=== PATIENT | female | born 1950 | race Caucasian/White ===

== ENCOUNTER 2020-01-17 17:31 | Emergency (ER) | payer MEDICARE, SELFPAY ==
--- NOTE | 2020-01-17 17:34 | ED.FEMALEGU ---
HPI - Female Genitourinary General Chief complaint: Urogenital-Female Stated complaint: Possible UTI Time Seen by Provider: 01/17/20 17:55 Source: patient and RN notes reviewed Mode of arrival: ambulatory Limitations: no limitations History of Present Illness HPI Narrative: 69-year-old female presents with concern for urinary tract infection. She reports symptoms started this morning with burning and frequency. She denies flank pain, abdominal pain, nausea, vomiting, fever, general malaise, abnormal vaginal discharge or bleeding. Reports her last UTI was about 6 months ago. MD elicited complaint: UTI Related Data Home Medications Medication Instructions Recorded Confirmed bupropion HCl 300 mg PO DAILY 01/17/20 01/17/20 carbidopa-levodopa 2 tablet QID 01/17/20 01/17/20 escitalopram oxalate 10 mg DAILY 01/17/20 01/17/20 esomeprazole magnesium 40 mg DAILY 01/17/20 01/17/20 icosapent ethyl [Vascepa] 2 g PO QID 01/17/20 01/17/20 mesalamine 1.2 g PO DAILY 01/17/20 01/17/20 thyroid (pork) [Aguilar Thyroid] 60 mg DAILY 01/17/20 01/17/20 Allergies Allergy/AdvReac Type Severity Reaction Status Date / Time prednisone Allergy Unknown Verified 02/21/18 11:02 Sulfa (Sulfonamide Allergy Unknown Verified 02/21/18 11:02 Antibiotics) sulfamethizole Allergy Unknown Verified 05/10/15 13:47 trimethoprim Allergy Unknown Verified 05/10/15 13:47 Review of Systems Review of Systems: Narrative: CONSTITUTIONAL: Denies malaise, chills, sweats, or fever. GASTROINTESTINAL: Denies abdominal pain, nausea, vomiting, diarrhea GENITOURINARY: Reports dysuria, frequency denies urgency, flank pain, hematuria. MUSCULOSKELETAL: Denies back pain or myalgia. All systems reviewed & are unremarkable except as noted in HPI and below PMFSH Family History Family History (Updated 02/21/18 @ 11:05 by DOCTOR UNKNOWN) Sibling Patient's sister is in good health Patient's brother is in good health Father Family history of Alzheimer's disease, Onset Age: 83 Mother Family history of malignant neoplasm of breast in first degree relative, Onset Age: 77 Family history of malignant neoplasm of ovary, Onset Age: 77 Other Cerebrovascular accident Diabetes mellitus Family history of malignant neoplasm Hypertension Social History Social History Smoking status: Former smoker Smoking end date: 11/04/94 Alcohol intake: current Comments At time of signature, agree with nursing past medical, surgical, social and family history. There is no relevant family history pertinent to the presenting complaint Exam Narrative: Exam Narrative: GENERAL: Well-appearing, well-nourished, and in no acute distress. HEAD: Normocephalic. EYES: PERRLA, conjunctivae clear. NECK: Supple. No lymphadenopathy CHEST: Clear to auscultation. No respiratory distress. HEART: Regular rate and rhythm. No murmur heard. Normal peripheral pulses. ABDOMEN: Soft, nontender upon palpation, nondistended, no palpable or pulsatile masses, no guarding. No CVA tenderness SKIN: Warm, dry, no rash. NEURO: Alert and oriented x3. PSYCH: Normal mood and affect Course Course Emergency Course: Patient is aware of diagnosis, understands and agrees to treatment plan. Anticipatory guidance given. Patient agrees to follow-up as directed and is aware of reasons to seek care at the emergency department. Portions of this record may have been created with voice recognition software Vital Signs Vital signs: Vital Signs Temperature 98.8 F 01/17/20 17:48 Pulse Rate 87 01/17/20 17:48 Respiratory Rate 01/17/20 17:48 Blood Pressure 113/47 L 01/17/20 17:48 Pulse Oximetry 99 01/17/20 17:48 Temperature 98.8 F 01/17/20 17:48 Pulse Rate 87 01/17/20 17:48 Respiratory Rate 20 01/17/20 17:48 Blood Pressure 113/47 L 01/17/20 17:48 Pulse Oximetry 99 01/17/20 17:48 Reviewed. MDM - Female Genitourinary MDM Narrative Medical decision
[2020-01-17 17:48] VITALS: BP 113/47; PULSE 87; RESP 20; TEMP 37.1; O2SAT 99
== END 2020-01-17 18:19 | disposition home or self-care (01) ==
PROVIDERS: Emergency Provider Nurse Practitioner; PCP Internal Medicine Endocrinology, Diabetes & Metabolism
DX: N39.0 Urinary tract infection, site not specified (principal); Z87.891 Personal history of nicotine dependence; G20 Parkinson's disease; I10 Essential (primary) hypertension; K21.9 Gastro-esophageal reflux disease without esophagitis; M19.90 Unspecified osteoarthritis, unspecified site; E03.9 Hypothyroidism, unspecified; F41.9 Anxiety disorder, unspecified; F32.9 Major depressive disorder, single episode, unspecified
CPT/HCPCS: 81003; 87086; 87088; 99213; G0463

== ENCOUNTER 2020-04-20 06:23 | Emergency (ER) | payer MEDICARE, SELFPAY ==
[2020-04-20] VITALS (11 sets, daily range): BP systolic 104–134; BP diastolic 47–66; PULSE 73–86; RESP 14–29; TEMP 36.7; O2SAT 91–100
--- NOTE | ~2020-04-20 | CT_ITS ---
EXAMINATION: CT brain wo con DATE: 04/20/2020 07:03 INDICATION: Head injury. TECHNIQUE: Computed tomography (CT) of the head was performed without intravenous contrast. The mA wa s adjusted according to patient size. Iterative reconstruction technique was employed. The dose-lengt h product was 605.33 mGy-cm. COMPARISON: Head CT 04/27/2018 FINDINGS: There are scattered areas of low attenuation in the cerebral white matter. There is diffuse brain volume loss. There is no intracranial hemorrhage, acute infarction, or abnormal intracranial m ass lesion. The ventricles are normal in size. There are likely changes of ocular lens replacement son rgeries. The paranasal sinuses are clear. The mastoid air cells are normal. There is skin nichole of the right lateral scalp where there is soft tissue swelling. IMPRESSION: 1. Stable mild nonspecific cerebral white matter disease, which likely represents chronic small vesse l ischemic disease. Reviewed, dictated and finalized at location A. IMPRESSION: 1. Stable mild nonspecific cerebral white matter disease, which likely represen ts chronic small vessel ischemic disease.
--- NOTE | ~2020-04-20 | CT_ITS ---
EXAMINATION: CT thoracic lumbar wo con DATE: 04/20/2020 07:03 INDICATION: Back pain. Fall. TECHNIQUE: Computed tomography (CT) of the thoracic and lumbar spine was performed without intravenou s contrast. The dose-length product was 1870.74 mGy-cm. COMPARISON: None FINDINGS: THORACIC SPINE CT: There is mild scarring at the lung apices. There is 17 degrees levoscoliosis of up per thoracic spine. There is 9 degrees dextrocurvature of lower thoracic spine. There is a chronic bu rst fracture of T9 with up to 4/5 loss of height. There is mildly decreased disc height from T4-T5 th rough T9-T10. There is multilevel mild facet joint osteoarthritis. There is moderate bilateral neural foraminal stenosis at T9-T10. No central canal stenosis. LUMBAR SPINE CT: There is 6 degrees levocurvature of lumbar spine. Vertebral body heights are normal. There is mildly decreased disc height at L3-L4 and severely decreased disc height at L5-S1. Partiall y visualized is a total left hip arthroplasty. The following disc levels are specifically discussed: L1-L2: The disc does not extend beyond the endplate margin. There is mild bilateral facet joint osteo arthritis. There is no neural foraminal stenosis. There is no central canal stenosis. L2-L3: The disc is bulging. There is moderate bilateral facet joint osteoarthritis. There is mild sonali ateral neural foraminal stenosis. There is mild central canal stenosis. L3-L4: The disc is bulging. There is moderate right and severe left facet joint osteoarthritis. There is mild bilateral neural foraminal stenosis. There is mild central canal stenosis. L4-L5: The disc is bulging. There is moderate right and mild left facet joint osteoarthritis. There i s mild bilateral neural foraminal stenosis. There is mild central canal stenosis. L5-S1: The disc is bulging. There is moderate bilateral facet joint osteoarthritis. There is moderate right and mild left neural foraminal stenosis. There is mild central canal stenosis. IMPRESSION: 1. No acute fracture. 2. Moderate lumbar spondylosis and mild thoracic spondylosis. 3. Scoliosis. Reviewed, dictated and finalized at location A.
--- NOTE | ~2020-04-20 | CT_ITS ---
EXAMINATION: CT cervical spine wo con DATE: 04/20/2020 07:03 INDICATION: Head injury. Neck pain. TECHNIQUE: Computed tomography (CT) of the cervical spine was performed without intravenous contrast. Automated exposure control and iterative reconstruction technique were employed. The dose-length pro duct was 218.06 mGy-cm. COMPARISON: None FINDINGS: There is mild scarring at the lung apices. Bone alignment is normal. Vertebral body heights are normal. There is a nondisplaced oblique fracture of the base of the dens. There is severely decr eased disc height from C3-C4 through C6-C7. The following disc levels are specifically discussed: C2-C3: There is no uncovertebral joint osteoarthritis. There is mild bilateral facet joint osteoarthr itis. There is no neural foraminal stenosis. There is no central canal stenosis. C3-C4: There is severe bilateral uncovertebral joint osteoarthritis. There is moderate bilateral face t joint osteoarthritis. There is mild bilateral neural foraminal stenosis. There is mild central kali l stenosis. C4-C5: There is severe bilateral uncovertebral joint osteoarthritis. There is moderate bilateral face t joint osteoarthritis. There is mild bilateral neural foraminal stenosis. There is mild central kali l stenosis. C5-C6: There is severe bilateral uncovertebral joint osteoarthritis. There is moderate bilateral face t joint osteoarthritis. There is mild bilateral neural foraminal stenosis. There is mild central kali l stenosis. C6-C7: There is severe bilateral uncovertebral joint osteoarthritis. There is mild bilateral facet ruma int osteoarthritis. There is mild bilateral neural foraminal stenosis. There is mild central canal st enosis. C7-T1: There is no uncovertebral joint osteoarthritis. There is severe bilateral facet joint osteoart hritis. There is mild bilateral neural foraminal stenosis. There is no central canal stenosis. IMPRESSION: 1. Type II odontoid fracture. 2. Severe cervical spondylosis. Reviewed, dictated and finalized at location A.
--- NOTE | 2020-04-20 06:22 | ED.FALL ---
HPI - Fall General Chief Complaint: Fall <Octavia Wise MD - Last Filed: 04/20/20 07:31> Stated Complaint: fall <Octavia Wise MD - Last Filed: 04/20/20 07:31> Time Seen by Provider: 04/20/20 07:48 <Octavia Wise MD - Last Filed: 04/20/20 07:31> Source: patient and EMS <Octavia Wise MD - Last Filed: 04/20/20 07:31> Mode of arrival: EMS <Octavia Wise MD - Last Filed: 04/20/20 07:31> Limitations: no limitations <Octavia Wise MD - Last Filed: 04/20/20 07:31> History of Present Illness HPI Narrative: Patient is a 69-year-old female who presents for evaluation after ground-level fall. Patient has a history of Parkinson's, states that she stood up from bed when she fell forward after tripping. Patient reports hitting her head, but denies loss of consciousness. She is reporting headache pain and neck pain that is dull, aching in nature. No vision changes, nausea or vomiting. No numbness or weakness. Patient has a small laceration that was bleeding that has resolved at the time of assessment. No prodromal symptoms such as chest pain, lightheadedness or dizziness prior to the fall. Patient states with her Parkinson's she has a history of frequent falls. <Octavia Wise MD - Last Filed: 04/20/20 07:31> Related Data Home Medications: Home Medications Medication Instructions Recorded Confirmed [employer] Thyroid 1 g PO DAILY 09/07/19 09/07/19 azilsartan med-chlorthalidone 1 tablet PO DAILY 09/07/19 09/07/19 [Edarbyclor] bupropion HCl 150 mg PO BID 09/07/19 09/07/19 carbidopa-levodopa 1 tablet PO QID 09/07/19 09/07/19 esomeprazole magnesium 40 mg PO DAILY 09/07/19 09/07/19 mesalamine 1.2 g PO QID 09/07/19 09/07/19 <Octavia Wise MD - Last Filed: 06/17/20 07:31> Allergies/Adverse Reactions: Allergies Allergy/AdvReac Type Severity Reaction Status Date / Time sulfamethoxazole Allergy Mild Unknown Verified 04/20/20 06:47 trimethoprim Allergy Mild Unknown Verified 04/20/20 06:47 prednisone Allergy Unknown Unknown Verified 04/20/20 07:25 STEROIDS Allergy Mild Unknown Uncoded 04/20/20 06:47 <Octavia Wise MD - Last Filed: 04/20/20 07:31> Review of Systems Review of Systems: Narrative: CONSTITUTIONAL: Denies fever CARDIOVASCULAR: Denies chest pain RESPIRATORY: Denies cough or dyspnea. GASTROINTESTINAL: Denies abdominal pain SKIN: Denies rash MUSCULOSKELETAL: Reports neck and back pain NEUROLOGIC: Reports headache <Octavia Wise MD - Last Filed: 04/20/20 07:31> [facility] [place] Past Medical History Medical History: Medical History (Updated 04/20/20 @ 07:30 by Octavia Wise MD) Anxiety Essential hypertension Hyperlipidemia Hypothyroidism IKE (obstructive sleep apnea) Parkinson's disease <Octavia Wise MD - Last Filed: 04/20/20 07:31> Surgical History Surgical History: Surgical History (Updated 04/20/20 @ 06:35 by Octavia Wise MD) H/O: hysterectomy <Octavia Wise MD - Last Filed: 04/20/20 07:31> Social History Social History: Social History (Updated 04/20/20 @ 06:35 by Octavia Wise MD) Smoking status: Never smoker Alcohol intake: never Substance use: never Gender identity (if verbalized by the patient): Female <Octavia Wise MD - Last Filed: 04/20/20 07:31> Exam Narrative: Exam Narrative: GENERAL: Awake, alert, conversant HEAD: Normocephalic, right temporal lobe scalp laceration approximately 1 cm, non-boggy, no depression, no active bleeding EYES: PERRLA and EOMI. ENT: Nares clear, no rhinorrhea or epistaxis. Mucous membranes moist. NECK: Supple. Midline cervical spine tenderness. Thorax: Midline thoracic and lumbar tenderness. CHEST: No respiratory distress, breathing even and non labored, no chest wall tenderness HEART: Regular rate, sinus rhythm ABDOMEN:Non distended, non tender Pelvis is stable to anterior lateral compression EXTREMITIES: Normal range of motion. No
[2020-04-20 06:48] LABS: Basophils Absolute Auto 0.1 K/mm3 (0.0-0.1); Basophils Percent Auto 0.6 % (0.2-1.2); Eosinophils Absolute Auto 0.3 K/mm3 (0-0.3); Eosinophils Percent Auto 3.3 % (0-4.4); Hematocrit 33.8 % (37.0-47.0); Hemoglobin 11.5 g/dL (12.0-15.0); Immature Granulocyte Absolute 0.04 K/mm3 (0.00-0.031); Immature Granulocyte Percent A 0.5 % (0-0.5); Lymphocytes Absolute Auto 2.12 K/mm3 (0.9-3.2); Lymphocytes Percent Auto 26.1 % (18.3-44.2); Mean Corpuscular Hemoglobin 31.2 pg (26-34); Mean Corpuscular Volume 91.6 fl (80-100); Mean Platelet Volume 10.5 fl (7.4-10.4); Monocytes Absolute Auto 0.6 K/mm3 (0.1-0.6); Monocytes Percent Auto 7.3 % (2.6-8.5); Neutrophils Absolute Auto 5.1 K/mm3 (1.3-6.7); Neutrophils Percent Auto 62.2 % (45.5-73.1); Platelet Count Result 259 k/mm3 (150-375); Red Blood Count 3.69 M/mm3 (4.2-5.4); Red Cell Distribution Width 12.2 % (11.5-14.5); White Blood Count 8.1 K/mm3 (4.5-10.0)
[2020-04-20 07:02] LABS: Blood Urea Nitrogen 27 mg/dL (7-17); Calcium 9.1 mg/dL (8.4-10.2); Carbon Dioxide 27 mmol/L (22-30); Chloride 99 mmol/L (98-107); Estimated Glomerular Filt Rate 49; Glucose 108 mg/dL (65-105); Potassium 4.6 mmol/L (3.4-5.0); Sodium 134 mmol/L (137-145)
[2020-04-20] MEDS: TETANUS,DIPHTHERIA,AC PERTUSSIS ADULT (0.5 ML) BOOSTRIX IM (07:30)
[2020-04-20 08:20] LABS: Add Urine Microscopic? NO; Appearance Urine Clear (Clear); Bilirubin Urine Negative (Negative); Blood Urine Negative (Negative); Color Urine Straw (Yellow); Glucose Urine UA Negative (Negative); Ketones Urine Negative (Negative); Leukocyte Esterase Ur Negative LEU/UL (Negative); Nitrate Urine Negative (Negative); Protein Urine Negative (Negative); Urobilinogen Urine Negative mg/dL (<2.0)
--- NOTE | 2020-04-20 09:00 | PC.NURSE ---
Pt. placed into gown and blood cleaned off Pt. with saline.
== END 2020-04-20 09:50 | disposition short-term general hospital (02) ==
PROVIDERS: Emergency Medicine; Emergency Provider Emergency Medicine; PCP Family Medicine
DX: S01.01XA Laceration without foreign body of scalp, initial encounter (principal); S12.112A Nondisplaced Type II dens fracture, initial encounter for closed fracture; G20 Parkinson's disease; Z23 Encounter for immunization; I10 Essential (primary) hypertension; F41.9 Anxiety disorder, unspecified; G47.33 Obstructive sleep apnea (adult) (pediatric); E78.5 Hyperlipidemia, unspecified; E03.9 Hypothyroidism, unspecified; W01.0XXA Fall on same level from slipping, tripping and stumbling without subsequent striking against object, initial encounter
CPT/HCPCS: 12001; 36415; 51701; 70450; 72125; 72128; 72131; 80048; 81003; 85025; 90471; 90715; 99285

== ENCOUNTER 2020-04-25 17:25 | IRF | payer MEDICARE, SELFPAY ==
[2020-04-25 17:20] VITALS: BP 130/56; PULSE 90; RESP 20; O2SAT 98; BMI 25.2
--- NOTE | 2020-04-25 17:45 | PC.NURSE ---
This patient, Stacy Enamorado, was admitted to [facility] Room 223-01. Patient/family oriented to hospital policies and general routines including ID bracelet, bed and alarms, visiting hours, pain management, procedures, bathroom and other care routines, personal items, smoking policy, room service/diet, and visiting hours. Valuables list has been completed. Information on how to activate the Rapid Response Team has been discussed. Patient/Family are encouraged to report perceived risks to care and to ask questions if they do not understand what they are told or what they should do.
[2020-04-25 20:00] VITALS: PULSE 87; RESP 18; O2SAT 99
[2020-04-25] MEDS: OMEGA 3 POLYUNSAT FATTY ACIDS 1 GM CAP 2 GM PO (20:46)
[2020-04-25] MEDS: buPROPion HCL XL (24 HR) 150 MG TABCR PO (20:47)
[2020-04-25] MEDS: CARBIDOPA/LEVODOPA 12.5/50 MG TABLET 1 TABLET PO (20:48)
[2020-04-25] MEDS: CARBIDOPA/LEVODOPA 25/100 MG TABLET 2 TABLET PO (20:49)
--- NOTE | 2020-04-25 21:26 | PHAR ---
PHARMACY VERIFIED: Azilsartan/Chlorthalidone [Edarbyclor] 40/25 MG *USE FROM HOME* TAKE 1/2 TABLET BY MOUTH DAILY Pt may use home medication
[2020-04-25 22:00] VITALS: BP 121/70; PULSE 87; RESP 18; TEMP 35.8; O2SAT 99
[2020-04-26 05:07] LABS: Basophils Absolute Auto 0.1 K/mm3 (0.0-0.1); Basophils Percent Auto 0.6 % (0.2-1.2); Eosinophils Absolute Auto 0.3 K/mm3 (0-0.3); Eosinophils Percent Auto 4.2 % (0-4.4); Hematocrit 31.5 % (37.0-47.0); Hemoglobin 10.5 g/dL (12.0-15.0); Immature Granulocyte Absolute 0.03 K/mm3 (0.00-0.031); Immature Granulocyte Percent A 0.4 % (0-0.5); Lymphocytes Absolute Auto 2.14 K/mm3 (0.9-3.2); Lymphocytes Percent Auto 27.8 % (18.3-44.2); Mean Corpuscular HGB Conc 33.3 g/dl (32-36); Mean Corpuscular Hemoglobin 30.8 pg (26-34); Mean Corpuscular Volume 92.4 fl (80-100); Mean Platelet Volume 10.6 fl (7.4-10.4); Monocytes Absolute Auto 0.6 K/mm3 (0.1-0.6); Neutrophils Absolute Auto 4.6 K/mm3 (1.3-6.7); Platelet Count Result 237 k/mm3 (150-375); Red Blood Count 3.41 M/mm3 (4.2-5.4); Red Cell Distribution Width 12.6 % (11.5-14.5); White Blood Count 7.7 K/mm3 (4.5-10.0)
[2020-04-26 05:19] LABS: Blood Urea Nitrogen 22 mg/dL (7-17); Calcium 8.6 mg/dL (8.4-10.2); Carbon Dioxide 29 mmol/L (22-30); Chloride 101 mmol/L (98-107); Estimated CRCL calculation 40 ml/min; Estimated Glomerular Filt Rate 49; Glucose 110 mg/dL (65-105); Potassium 4.2 mmol/L (3.4-5.0); Sodium 135 mmol/L (137-145)
[2020-04-26 06:00] VITALS: BP 128/56; PULSE 76; RESP 18; TEMP 35.3; O2SAT 97
--- NOTE | 2020-04-26 11:00 | WPDREHABHP ---
H&P: HPI History of Present Illness Chief complaint: Type II Odontoid fracture/Parkinsons Narrative: Stacy Enamorado is a 69 year old female HISTORY OF PRESENT ILLNESS: The patient's primary rehab impairment category is orthopedic-other The etiologic diagnosis is type 2 odontoid fracture I saw this patient [id number] on April 26, 2020 at 11:00 a.m. The patient is a 69-year-old right-handed woman with a past history of Parkinson's disease, hypothyroidism, depressive disorder, ulcerative colitis and hypertension who initially presented to [facility] on April 20, 2020 after suffering a fall at home. She reportedly stood up to get her walker and lost her footing on the carpet. She fell backwards and hit her head and most likely lost consciousness. In the emergency room her head laceration was repaired and imaging revealed and age indeterminate are not white fracture and T9 age indeterminate determine vertebral body fracture. she was transferred to [facility] for neurosurgery evaluation. New surgery and Trauma surgery both saw the patient and deemed there was no surgical intervention needed but recommendations to keep cervical collar on during activity and okay to move while sleeping or in bed. She is to wear the cervical collar for 6 weeks. Pain is being controlled with oral analgesics. MRI showed no acute fracture the throwing his thoracic spine and nondisplaced type 2 odontoid fracture with mild body edema along the fracture. There was no ligamentous injury or traumatic herniation. Patient receiving physical a compression therapy prior to admission and actually saw them on the day of fall. It was recommended the patient participated intensive inpatient rehabilitation program to determine the effectiveness of current Parkinson's treatment regimen and make changes as necessary. Pay since hospitalization significant for acute pain impaired mobility impaired ability to perform activities of daily living, patient has underlying Parkinson's disease certain colitis hypertension electrolyte imbalances gastroesophageal reflux disease hypothyroidism and anxiety. The patient is walking 400 feet so I do not believe that she will need the heparin prophylaxis here. The patient has not traveled outside the [place] or had contact with someone who is ill that has traveled outside the [place] in the past 21 days. The patient has not traveled to an area within the [place] that is experiencing no transmission of the Coronavirus and has not had close personal contact with anyone that has. The patient does not have a fever and the patient does not have any pulmonary symptoms. Therapy was initiated at the acute care facility and the patient transferred to us from [facility] on on April 25 2020 FALLS OR SURGERIES: The patient has had no major surgeries in the 100 days prior to admission. They had falls in the past year. They had falls with injury in the past year. PAST MEDICAL HISTORY: Parkinson's disease, hypertension, ulcerative colitis, GERD PAST SURGICAL HISTORY: appendectomy, hysterectomy, hip surgery, knee surgery. SOCIAL HISTORY: The patient lives with the in a 1 level home with 2 steps to enter. She was independent with wheel walker prior. Her helps when he can he has congestive heart failure. The plan is the patient to go home with her and moved to [place] into an assisted living facility close to the daughter. The patient has had multiple falls in the past 6 months. No major surgery in the past 100 days. Never smoked no alcohol or drug use FAMILY HISTORY: patient definitely has cognitive deficit and unable to offer much of a detailed family history PRIOR LEVEL OF FUNCTION: Eating was INDEPENDENT Oral Care was INDEPENDENT Toileting Hygiene was INDEPENDENT Shower/Bathing was INDEPENDENT Upper Body Dressing was INDEPENDENT Lower Body Dres
[2020-04-26] MEDS: CARBIDOPA/LEVODOPA 12.5/50 MG TABLET 1 TABLET PO ×4 (12:11→20:25)
[2020-04-26] MEDS: CARBIDOPA/LEVODOPA 25/100 MG TABLET 2 TABLET PO ×4 (12:11→20:25)
[2020-04-26] MEDS: ESCITALOPRAM OXALATE 10 MG TABLET PO (12:12)
[2020-04-26] MEDS: buPROPion HCL XL (24 HR) 150 MG TABCR PO ×2 (12:12→20:24)
[2020-04-26] MEDS: THYROID 60 MG TABLET PO (12:14)
[2020-04-26] MEDS: PANTOPRAZOLE 40 MG TABLET PO (12:14)
[2020-04-26 13:03] VITALS: BMI 25.2
[2020-04-26] MEDS: ENOXAPARIN 40 MG/0.4 ML SYRINGE SUB-Q (13:40)
[2020-04-26 14:00] VITALS: BP 107/51; PULSE 90; RESP 18; TEMP 36.6; O2SAT 96
--- NOTE | 2020-04-26 17:33 | PHAR ---
The patient's home meds of Vascepa 1 gram and Mesalamine 1.2grams have been verified.
[2020-04-26 22:00] VITALS: BP 113/56; PULSE 79; RESP 18; TEMP 36.8; O2SAT 98
[2020-04-27 06:00] VITALS: BP 119/59; PULSE 78; RESP 18; TEMP 36.6; O2SAT 100
[2020-04-27] MEDS: buPROPion HCL XL (24 HR) 150 MG TABCR PO ×2 (07:54→20:01)
[2020-04-27] MEDS: ESCITALOPRAM OXALATE 10 MG TABLET PO (07:54)
[2020-04-27] MEDS: ENOXAPARIN 40 MG/0.4 ML SYRINGE SUB-Q (07:54)
[2020-04-27] MEDS: CARBIDOPA/LEVODOPA 25/100 MG TABLET 2 TABLET PO ×4 (07:54→20:02)
[2020-04-27] MEDS: PANTOPRAZOLE 40 MG TABLET PO (07:55)
[2020-04-27] MEDS: CARBIDOPA/LEVODOPA 12.5/50 MG TABLET 1 TABLET PO ×4 (07:55→20:01)
[2020-04-27] MEDS: THYROID 60 MG TABLET PO (07:56)
--- NOTE | 2020-04-27 11:09 | RPD ---
INDIVIDUALIZED PLAN OF CARE FOR Stacy Enamorado Brief Synthesis of Pre-Admission Screen, Post-Admission Evaluation and Therapy Evaluations: The patient presents to rehab with traumatic type II odontoid fracture and T9 vertebral body fracture in the setting of Parkinson's disease after a fall. Comorbidities include bone edema at odontoid fracture, T9 erosion, Parkinson's disease, gastroesophageal reflux disease, acute pain, electrolyte imbalances, impaired mobility, hypertension, and head laceration. The patient?s needs will be best met in an intensive program vs. at a lower level of care. The patient requires physician services for medical oversight, management medical complications in setting of present comorbidities, and pain management. The patient requires nursing services for DVT prophylactics, infection protection, medication management and education, pressure relief, and wound care. Deficits include:ADLs, Balance, Endurance, Family Training/Education, Mobility, Pain Management, ROM, Safety, Strength, and Transfers [employer]/Case Management for: Discharge Planning and Patient/Family Counseling Physical Therapy: 5 days per week for 60 minutes. Treatments may include: Therapeutic Exercise, Gait Training, Neuromuscular Re-education, Transfer Training, Community Reintegration, Bed Mobility, Patient/Family Education, Wheelchair Mobility Group Therapy/Concurrent Therapy Rationales: -Improve attention span during functional activities in a distracted environment. -Enhance problem solving and/or adequate judgment skills during functional activities in a distracted environment. -Promote increased safety awareness in a distracted environment to reduce fall risk with functional tasks, transfers, and ambulation to allow a more safe, self-sufficient return to the home environment. -Improve dynamic balance skills to promote safety and independence with functional activities in a distracted environment for maximum gain. Occupational Therapy: 5 days per week for 60 minutes. Treatments may include: Therapeutic Exercise, Therapeutic Activity, Cognitive Training, Self-Care Transfer Training, Community Reintegration, Home Management, Patient/Family Education, Wheelchair Mobility Training, Energy Conservation Training Group Therapy/Concurrent Therapy Rationales: -Allow therapist to observe and teach generalization and carry-over of skills learned in individual therapy. -Enhance problem solving and sequencing skills during therapeutic activities in a distracted environment. -Promote increased safety awareness in a realistic setting to reduce fall risk with functional tasks due to visual and verbal distractions. -Increase functional level with ADLs, ADL transfers and use of adaptive equipment through therapeutic activities with others while promoting safety to allow a more safe, self-sufficient return home. Speech Therapy: 5 days per week for 60 minutes. Treatments may include: Dysphasia Therapy, Speech/Language/Communication Therapy, Cognitive Training, Patient/Family Education Group Therapy/Concurrent Therapy - Rationale: -Allow therapist to observe and teach generalization and carry-over of skills learned in individual therapy. -Improve comprehension skills with complex or abstract ideas through discussion in a realistic setting. -Enhance problem solving skills with complex issues during activities in a distracted environment. -Promote increased memory skills and concentration in a distracted environment for a safe transition home. -Improve attention and focus with language/communication skills in a realistic and supportive therapeutic setting. -Allow for practice of expression of basic needs and ideas through functional activities with others. Medical Prognosis: Good Anticipated Length of Stay: 12 days Rehab Goals: Eating Goal: 06-Independent Oral Hygiene Goal: 06-Independent Toileting Hygiene Goal: 06-Independent Shower/Bathe Self Goal: 04-Supervision or
--- NOTE | 2020-04-27 12:18 | WPDNEURORHBP ---
Subjective Date/time seen: 04/27/20 12:18 Interval history: this 69-year-old woman is here for the rehab after having had the diagnosis of type 2 ordered tried fracture which is being treated conservatively with the [place] collar she also has underlying Parkinson's disease for which she is being treated and it is stable the patient is doing fairly well and moving forward with the therapy and walking quite a bit she denies any headache nausea vomiting chest pain or shortness of breath she is tolerating the [place] collar fairly well Review of Systems Review of Systems: All systems reviewed & are unremarkable except as noted in HPI and below Functional Status Ambulation Ability Ability to Ambulate 10 Feet: Minimum Assistance X 1 Ability to Ambulate 50 Feet With 2 Turns: Minimum Assistance X 1 Ability to Ambulate 150 Feet: Minimum Assistance X 1 Ambulation Assistive Devices: Walker, Wheeled Transfers Ability Ability to Transfer In/Out of Chair: Contact Guard Exam Const: General: comfortable and no acute distress HENMT: General nose exam: Normal nares present Mouth: Yes moist mucous membranes Eyes: General: appearance normal, both eyes and all related structures Neck: Neck: supple and no JVD Resp: Effort & Inspection: normal respiratory effort Auscultation: clear to auscultation bilaterally Cardio: Rate: regular rate Rhythm: regular rhythm GI: GI Palp: Yes Soft to palpation Auscultation: normal bowel sounds Skin: General skin exam: normal color and no rashes or lesions noted Neuro: Other: patient is awake alert well oriented Parkinson's stable and she is working with rehab fairly well overall improving Extrem: General: normal to inspection Psych: Mental Status: mental status grossly normal Objective Data Vital Signs Vital Signs: Vital Signs - 24 hr 04/26/20 14:00 04/26/20 22:00 04/27/20 06:00 Temperature 36.6 C 36.8 C 36.6 C Pulse Rate 90 79 78 Respiratory Rate 18 18 18 Blood Pressure 107/51 L 113/56 L 119/59 L Pulse Oximetry 96 98 100 Intake/Output Intake/Output: Intake & Output 04/24/20 04/25/20 04/26/20 04/27/20 23:59 23:59 23:59 23:59 Intake Total 720 120 Balance 720 120 Meds/Results Medications: Active Medications Generic Name Dose Route Start Last Admin Trade Name Freq PRN Reason Stop Dose Admin Acetaminophen 650 mg 04/25/20 18:42 Tylenol Tablet PO Q4H PRN Pain (Scale Score 1-3) Bupropion HCl 150 mg 04/25/20 21:00 04/27/20 07:54 Wellbutrin Xl (24 Hr) PO 150 mg Q12HR ITZEL Administration Carbidopa/Levodopa 2 tablet 04/25/20 21:00 04/27/20 07:54 Sinemet 25/100 Mg PO 2 tablet QID ITZEL Administration Carbidopa/Levodopa 1 tablet 04/25/20 21:00 04/27/20 07:55 Sinemet 12.5/50 Mg PO 1 tablet QID ITZEL Administration Enoxaparin Sodium 40 mg 04/26/20 09:00 04/27/20 07:54 Lovenox SUB-Q 40 mg DAILY ITZEL Administration Escitalopram Oxalate 10 mg 04/26/20 09:00 04/27/20 07:54 Lexapro PO 10 mg DAILY ITZEL Administration Oxycodone HCl 5 mg 04/25/20 18:42 Roxicodone Ir Tablet PO Q6H PRN pain>6 Pantoprazole Sodium 40 mg 04/26/20 09:00 04/27/20 07:55 Protonix PO 40 mg QAM ITZEL Administration Thyroid 60 mg 04/26/20 09:00 04/27/20 07:56 [place] Thyroid PO 60 mg DAILY ITZEL Administration Progress Note: A&P Assessment and Plan (1) Hypertension: Code(s): I10 - Essential (primary) hypertension Status: Acute (2) Ulcerative colitis: Code(s): K51.90 - Ulcerative colitis, unspecified, without complications Status: Acute (3) Parkinsons disease: Code(s): G20 - Parkinson's disease Status: Acute (4) T9 vertebral fracture: Code(s): S22.079A - Unspecified fracture of T9-T10 vertebra, initial encounter for closed fracture Status: Acute (5) Type II fracture of odontoid process: Code(s): S12.110A - Anterior displaced Type II dens fra
[2020-04-27 14:00] VITALS: BP 108/64; PULSE 88; RESP 17; TEMP 37.1; O2SAT 98
[2020-04-27] MEDS: ACETAMINOPHEN 325 MG TABLET 650 MG PO (19:59)
[2020-04-27 22:00] VITALS: BP 108/48; PULSE 79; RESP 18; TEMP 35.2; O2SAT 99
[2020-04-28 06:00] VITALS: BP 97/48; PULSE 70; RESP 18; TEMP 35.5; O2SAT 98
[2020-04-28] MEDS: THYROID 60 MG TABLET PO (09:27)
[2020-04-28] MEDS: PANTOPRAZOLE 40 MG TABLET PO (09:28)
[2020-04-28] MEDS: CARBIDOPA/LEVODOPA 25/100 MG TABLET 2 TABLET PO ×4 (09:28→21:08)
[2020-04-28] MEDS: CARBIDOPA/LEVODOPA 12.5/50 MG TABLET 1 TABLET PO ×4 (09:28→21:08)
[2020-04-28] MEDS: ESCITALOPRAM OXALATE 10 MG TABLET PO (09:28)
[2020-04-28] MEDS: buPROPion HCL XL (24 HR) 150 MG TABCR PO ×2 (09:28→21:08)
[2020-04-28] MEDS: ENOXAPARIN 40 MG/0.4 ML SYRINGE SUB-Q (09:28)
[2020-04-28 14:00] VITALS: BP 115/46; PULSE 73; RESP 18; TEMP 36.7; O2SAT 96
--- NOTE | 2020-04-28 16:15 | PCCCNOTE ---
On 04/28/20, the student, [Paco Haile ], provided care and completed [facility] documentation on this patient. I have reviewed the student's documentation and agree with the findings.
[2020-04-28 22:00] VITALS: BP 116/40; PULSE 72; RESP 18; TEMP 36.2; O2SAT 98
[2020-04-29 06:00] VITALS: BP 111/53; PULSE 67; RESP 18; TEMP 36.3; O2SAT 98
[2020-04-29] MEDS: THYROID 60 MG TABLET PO (09:27)
[2020-04-29] MEDS: PANTOPRAZOLE 40 MG TABLET PO (09:27)
[2020-04-29] MEDS: buPROPion HCL XL (24 HR) 150 MG TABCR PO ×2 (09:29→20:28)
[2020-04-29] MEDS: ENOXAPARIN 40 MG/0.4 ML SYRINGE SUB-Q (09:29)
[2020-04-29] MEDS: CARBIDOPA/LEVODOPA 25/100 MG TABLET 2 TABLET PO ×4 (09:29→20:29)
[2020-04-29] MEDS: CARBIDOPA/LEVODOPA 12.5/50 MG TABLET 1 TABLET PO ×4 (09:29→20:28)
[2020-04-29] MEDS: ESCITALOPRAM OXALATE 10 MG TABLET PO (09:30)
--- NOTE | 2020-04-29 11:46 | WPDNEURORHBP ---
Subjective Date/time seen: 04/29/20 11:46 Interval history: This 69-year-old woman is here essentially because of the ordering quite fracture and the fracture of T9 she is wearing the cervical collar and doing fairly well and her Parkinson's disease is fairly stable with the current dosages she denies any headache nausea vomiting chest pain shortness of breath fever chills or sore throat Review of Systems Review of Systems: All systems reviewed & are unremarkable except as noted in HPI and below Functional Status Ambulation Ability Ability to Ambulate 10 Feet: Contact Guard Ability to Ambulate 50 Feet With 2 Turns: Contact Guard Ability to Ambulate 150 Feet: Minimum Assistance X 1 Ambulation Assistive Devices: Walker, Wheeled Transfers Ability Ability to Transfer In/Out of Chair: Contact Guard Exam Const: General: comfortable and no acute distress HENMT: General nose exam: Normal nares present Mouth: Yes moist mucous membranes Eyes: General: appearance normal, both eyes and all related structures Other: patient's neck movements are of course limited because of the cervical collar and the odontoid fracture Neck: Neck: supple and no JVD Resp: Effort & Inspection: normal respiratory effort Auscultation: clear to auscultation bilaterally Cardio: Rate: regular rate Rhythm: regular rhythm GI: GI Palp: Yes Soft to palpation Auscultation: normal bowel sounds Skin: General skin exam: normal color and no rashes or lesions noted Neuro: Other: patient's Parkinson's Disease is stable fairly decent gait without shuffling of course with the use of the walker the strength is improving and overall picture is of improvement in her neurological state Extrem: General: normal to inspection Psych: Mental Status: mental status grossly normal Objective Data Vital Signs Vital Signs: Vital Signs - 24 hr 04/28/20 14:00 04/28/20 22:00 04/29/20 06:00 Temperature 36.7 C 36.2 C L 36.3 C L Pulse Rate 73 72 67 Respiratory Rate 18 18 18 Blood Pressure 115/46 L 116/40 L 111/53 L Pulse Oximetry 96 98 98 Intake/Output Intake/Output: Intake & Output 04/26/20 04/27/20 04/28/20 04/29/20 23:59 23:59 23:59 23:59 Intake Total 720 600 720 120 Balance 720 600 720 120 Meds/Results Medications: Active Medications Generic Name Dose Route Start Last Admin Trade Name Freq PRN Reason Stop Dose Admin Acetaminophen 650 mg 04/25/20 18:42 04/27/20 19:59 Tylenol Tablet PO 650 mg Q4H PRN Administration Pain (Scale Score 1-3) Bupropion HCl 150 mg 04/25/20 21:00 04/29/20 09:29 Wellbutrin Xl (24 Hr) PO 150 mg Q12HR ITZEL Administration Carbidopa/Levodopa 2 tablet 04/25/20 21:00 04/29/20 09:29 Sinemet 25/100 Mg PO 2 tablet QID ITZEL Administration Carbidopa/Levodopa 1 tablet 04/25/20 21:00 04/29/20 09:29 Sinemet 12.5/50 Mg PO 1 tablet QID ITZEL Administration Enoxaparin Sodium 40 mg 04/26/20 09:00 04/29/20 09:29 Lovenox SUB-Q 40 mg DAILY ITZEL Administration Escitalopram Oxalate 10 mg 04/26/20 09:00 04/29/20 09:30 Lexapro PO 10 mg DAILY ITZEL Administration Oxycodone HCl 5 mg 04/25/20 18:42 Roxicodone Ir Tablet PO Q6H PRN pain>6 Pantoprazole Sodium 40 mg 04/26/20 09:00 04/29/20 09:27 Protonix PO 40 mg QAM ITZEL Administration Thyroid 60 mg 04/26/20 09:00 04/29/20 09:27 [place] Thyroid PO 60 mg DAILY ITZEL Administration Progress Note: A&P Assessment and Plan (1) Hypertension: Code(s): I10 - Essential (primary) hypertension Status: Acute (2) Ulcerative colitis: Code(s): K51.90 - Ulcerative colitis, unspecified, without complications Status: Acute (3) Parkinsons disease: Code(s): G20 - Parkinson's disease Status: Acute (4) T9 vertebral fracture: Code(s): S22.079A - Unspecified fracture of T9-T10 vertebra, initial encounter for closed fracture Status: Acute (5) Type II fract
[2020-04-29 14:00] VITALS: BP 110/49; PULSE 69; RESP 17; TEMP 36.4; O2SAT 98
[2020-04-29 22:00] VITALS: PULSE 64; RESP 18; TEMP 36.3; O2SAT 98
[2020-04-30 06:00] VITALS: BP 135/78; PULSE 67; RESP 18; TEMP 36.5; O2SAT 97
[2020-04-30 08:15] VITALS: PULSE 76; RESP 18; O2SAT 98
[2020-04-30] MEDS: CARBIDOPA/LEVODOPA 12.5/50 MG TABLET 1 TABLET PO ×4 (10:09→20:33)
[2020-04-30] MEDS: ENOXAPARIN 40 MG/0.4 ML SYRINGE SUB-Q (10:10)
[2020-04-30] MEDS: ESCITALOPRAM OXALATE 10 MG TABLET PO (10:10)
[2020-04-30] MEDS: PANTOPRAZOLE 40 MG TABLET PO (10:11)
[2020-04-30] MEDS: THYROID 60 MG TABLET PO (10:11)
[2020-04-30] MEDS: CARBIDOPA/LEVODOPA 25/100 MG TABLET 2 TABLET PO ×4 (10:11→20:35)
[2020-04-30] MEDS: buPROPion HCL XL (24 HR) 150 MG TABCR PO ×2 (10:11→20:35)
[2020-04-30 14:00] VITALS: BP 124/54; PULSE 74; RESP 20; TEMP 36.3; O2SAT 98
--- NOTE | 2020-04-30 16:13 | WPDNEURORHBP ---
Subjective Date/time seen: 04/30/20 16:13 Interval history: this 69-year-old woman with underlying Parkinson's disease is here after having had ordered wide fracture type 2 and she is wearing a hard [place] collar doing fairly well her Parkinson's disease is controlled she denies any headache nausea vomiting chest pain shortness of breath fever chills sore throat Review of Systems Review of Systems: All systems reviewed & are unremarkable except as noted in HPI and below Functional Status Ambulation Ability Ability to Ambulate 10 Feet: Contact Guard Ability to Ambulate 50 Feet With 2 Turns: Contact Guard Ability to Ambulate 150 Feet: Contact Guard Ambulation Assistive Devices: Walker, Wheeled Transfers Ability Ability to Transfer In/Out of Chair: Contact Guard Exam Const: General: comfortable and no acute distress HENMT: General nose exam: Normal nares present Mouth: Yes moist mucous membranes Eyes: General: appearance normal, both eyes and all related structures Neck: Neck: supple and no JVD Other: she is wearing the hard [place] collar and doing fairly well with that Resp: Effort & Inspection: normal respiratory effort Auscultation: clear to auscultation bilaterally Cardio: Rate: regular rate Rhythm: regular rhythm GI: GI Palp: Yes Soft to palpation Auscultation: normal bowel sounds Skin: General skin exam: normal color and no rashes or lesions noted Neuro: Other: patient is awake alert well oriented to time place and person has normal speech and language function Parkinson's disease under control she is engage therapy her weakness is improving Extrem: General: normal to inspection Psych: Mental Status: mental status grossly normal Objective Data Vital Signs Vital Signs: Vital Signs - 24 hr 04/29/20 22:00 04/30/20 06:00 04/30/20 08:15 Temperature 36.3 C L 36.5 C Pulse Rate 64 67 76 Respiratory Rate 18 18 18 Blood Pressure 135/78 Pulse Oximetry 98 97 98 04/30/20 14:00 Temperature 36.3 C L Pulse Rate 74 Respiratory Rate 20 Blood Pressure 124/54 L Pulse Oximetry 98 Intake/Output Intake/Output: Intake & Output 04/27/20 04/28/20 04/29/20 04/30/20 23:59 23:59 23:59 23:59 Intake Total 600 720 480 480 Balance 600 720 480 480 Meds/Results Medications: Active Medications Generic Name Dose Route Start Last Admin Trade Name Freq PRN Reason Stop Dose Admin Acetaminophen 650 mg 04/25/20 18:42 04/27/20 19:59 Tylenol Tablet PO 650 mg Q4H PRN Administration Pain (Scale Score 1-3) Bupropion HCl 150 mg 04/25/20 21:00 04/30/20 10:11 Wellbutrin Xl (24 Hr) PO 150 mg Q12HR ITZEL Administration Carbidopa/Levodopa 1 tablet 04/29/20 13:00 04/30/20 13:50 Sinemet 12.5/50 Mg PO 1 tablet 0900,1300,1900,2100 ITZEL Administration Carbidopa/Levodopa 2 tablet 04/29/20 13:00 04/30/20 13:50 Sinemet 25/100 Mg PO 2 tablet 0900,1300,1900,2100 ITZEL Administration Enoxaparin Sodium 40 mg 04/26/20 09:00 04/30/20 10:10 Lovenox SUB-Q 40 mg DAILY ITZEL Administration Escitalopram Oxalate 10 mg 04/26/20 09:00 04/30/20 10:10 Lexapro PO 10 mg DAILY ITZEL Administration Oxycodone HCl 5 mg 04/25/20 18:42 Roxicodone Ir Tablet PO Q6H PRN pain>6 Pantoprazole Sodium 40 mg 04/26/20 09:00 04/30/20 10:11 Protonix PO 40 mg QAM ITZEL Administration Thyroid 60 mg 04/26/20 09:00 04/30/20 10:11 [place] Thyroid PO 60 mg DAILY ITZEL Administration Progress Note: A&P Assessment and Plan (1) Hypertension: Code(s): I10 - Essential (primary) hypertension Status: Acute (2) Ulcerative colitis: Code(s): K51.90 - Ulcerative colitis, unspecified, without complications Status: Acute (3) Parkinsons disease: Code(s): G20 - Parkinson's disease Status: Acute (4) T9 vertebral fracture: Code(s): S22.079A - Unspecified fracture of T9-T10 vertebra, initial encounter for closed fracture
[2020-04-30 20:00] VITALS: PULSE 74; RESP 20; O2SAT 98
[2020-04-30 22:00] VITALS: BP 134/56; PULSE 72; RESP 18; TEMP 36.1; O2SAT 97
[2020-05-01 06:00] VITALS: BP 108/42; PULSE 72; RESP 17; TEMP 36.6; O2SAT 98
[2020-05-01] MEDS: CARBIDOPA/LEVODOPA 12.5/50 MG TABLET 1 TABLET PO ×4 (09:01→20:16)
[2020-05-01] MEDS: buPROPion HCL XL (24 HR) 150 MG TABCR PO ×2 (09:01→20:16)
[2020-05-01] MEDS: CARBIDOPA/LEVODOPA 25/100 MG TABLET 2 TABLET PO ×4 (09:02→20:17)
[2020-05-01] MEDS: ENOXAPARIN 40 MG/0.4 ML SYRINGE SUB-Q (09:02)
[2020-05-01] MEDS: ESCITALOPRAM OXALATE 10 MG TABLET PO (09:02)
[2020-05-01] MEDS: PANTOPRAZOLE 40 MG TABLET PO (09:03)
[2020-05-01] MEDS: THYROID 60 MG TABLET PO (09:04)
[2020-05-01 14:00] VITALS: BP 130/68; PULSE 73; RESP 16; TEMP 36.5; O2SAT 97
--- NOTE | 2020-05-01 17:24 | WPDNEURORHBP ---
Subjective Date/time seen: 05/01/20 17:24 Interval history: this 69-year-old is here after having had a type 2 odontoid fracture and she is wearing hard [place] collar doing fairly well pain is controlled she is walking better and weakness is improving she denies any headache nausea vomiting chest pain shortness of breath fever chills sore throat and her Parkinson's disease is stable Review of Systems Review of Systems: All systems reviewed & are unremarkable except as noted in HPI and below Functional Status Ambulation Ability Ability to Ambulate 10 Feet: Contact Guard Ability to Ambulate 50 Feet With 2 Turns: Contact Guard Ability to Ambulate 150 Feet: Contact Guard Ambulation Assistive Devices: Walker, Wheeled Transfers Ability Ability to Transfer In/Out of Chair: Contact Guard Exam Const: General: comfortable and no acute distress HENMT: General nose exam: Normal nares present Mouth: Yes moist mucous membranes Eyes: General: appearance normal, both eyes and all related structures Neck: Neck: supple and no JVD Resp: Effort & Inspection: normal respiratory effort Auscultation: clear to auscultation bilaterally Cardio: Rate: regular rate Rhythm: regular rhythm GI: GI Palp: Yes Soft to palpation Auscultation: normal bowel sounds Skin: General skin exam: normal color and no rashes or lesions noted Neuro: Other: patient is awake alert well oriented time place and person and has generalized weakness is improving overall Parkinson's disease remained stable Extrem: General: normal to inspection Psych: Mental Status: mental status grossly normal Objective Data Vital Signs Vital Signs: Vital Signs - 24 hr 04/30/20 20:00 04/30/20 22:00 05/01/20 06:00 Temperature 36.1 C L 36.6 C Pulse Rate 74 72 72 Respiratory Rate 20 18 17 Blood Pressure 134/56 L 108/42 L Pulse Oximetry 98 97 98 05/01/20 14:00 Temperature 36.5 C Pulse Rate 73 Respiratory Rate 16 Blood Pressure 130/68 Pulse Oximetry 97 Intake/Output Intake/Output: Intake & Output 04/28/20 04/29/20 04/30/20 05/01/20 23:59 23:59 23:59 23:59 Intake Total 720 480 720 600 Balance 720 480 720 600 Meds/Results Medications: Active Medications Generic Name Dose Route Start Last Admin Trade Name Freq PRN Reason Stop Dose Admin Acetaminophen 650 mg 04/25/20 18:42 04/27/20 19:59 Tylenol Tablet PO 650 mg Q4H PRN Administration Pain (Scale Score 1-3) Bupropion HCl 150 mg 04/25/20 21:00 05/01/20 09:01 Wellbutrin Xl (24 Hr) PO 150 mg Q12HR ITZEL Administration Carbidopa/Levodopa 1 tablet 04/29/20 13:00 05/01/20 13:24 Sinemet 12.5/50 Mg PO 1 tablet 0900,1300,1900,2100 ITZEL Administration Carbidopa/Levodopa 2 tablet 04/29/20 13:00 05/01/20 13:25 Sinemet 25/100 Mg PO 2 tablet 0900,1300,1900,2100 ITZEL Administration Enoxaparin Sodium 40 mg 04/26/20 09:00 05/01/20 09:02 Lovenox SUB-Q 40 mg DAILY ITZEL Administration Escitalopram Oxalate 10 mg 04/26/20 09:00 05/01/20 09:02 Lexapro PO 10 mg DAILY ITZEL Administration Oxycodone HCl 5 mg 04/25/20 18:42 Roxicodone Ir Tablet PO Q6H PRN pain>6 Pantoprazole Sodium 40 mg 04/26/20 09:00 05/01/20 09:03 Protonix PO 40 mg QAM ITZEL Administration Thyroid 60 mg 04/26/20 09:00 05/01/20 09:04 [place] Thyroid PO 60 mg DAILY ITZEL Administration Progress Note: A&P Assessment and Plan (1) Hypertension: Code(s): I10 - Essential (primary) hypertension Status: Acute (2) Ulcerative colitis: Code(s): K51.90 - Ulcerative colitis, unspecified, without complications Status: Acute (3) Parkinsons disease: Code(s): G20 - Parkinson's disease Status: Acute (4) T9 vertebral fracture: Code(s): S22.079A - Unspecified fracture of T9-T10 vertebra, initial encounter for closed fracture Status: Acute (5) Type II fracture of odontoid process: Code(s): S12.110A
[2020-05-01 22:00] VITALS: BP 128/60; PULSE 99; RESP 18; TEMP 36.4; O2SAT 92
[2020-05-02 06:00] VITALS: BP 135/65; PULSE 75; RESP 20; TEMP 36.4; O2SAT 97
[2020-05-02] MEDS: CARBIDOPA/LEVODOPA 12.5/50 MG TABLET 1 TABLET PO ×4 (10:05→20:22)
[2020-05-02] MEDS: buPROPion HCL XL (24 HR) 150 MG TABCR PO ×2 (10:05→20:21)
[2020-05-02] MEDS: CARBIDOPA/LEVODOPA 25/100 MG TABLET 2 TABLET PO ×4 (10:06→20:22)
[2020-05-02] MEDS: ENOXAPARIN 40 MG/0.4 ML SYRINGE SUB-Q (10:07)
[2020-05-02] MEDS: THYROID 60 MG TABLET PO (10:08)
[2020-05-02] MEDS: PANTOPRAZOLE 40 MG TABLET PO (10:08)
[2020-05-02] MEDS: ESCITALOPRAM OXALATE 10 MG TABLET PO (10:08)
[2020-05-02 14:00] VITALS: BP 122/61; PULSE 78; RESP 20; TEMP 36.7; O2SAT 99
[2020-05-02 22:00] VITALS: BP 122/47; PULSE 70; RESP 18; TEMP 36.3; O2SAT 95
[2020-05-03 05:01] LABS: Basophils Percent Auto 0.6 % (0.2-1.2); Eosinophils Absolute Auto 0.2 K/mm3 (0-0.3); Eosinophils Percent Auto 2.3 % (0-4.4); Hematocrit 31.5 % (37.0-47.0); Hemoglobin 10.5 g/dL (12.0-15.0); Immature Granulocyte Absolute 0.04 K/mm3 (0.00-0.031); Immature Granulocyte Percent A 0.6 % (0-0.5); Lymphocytes Absolute Auto 1.38 K/mm3 (0.9-3.2); Lymphocytes Percent Auto 20.1 % (18.3-44.2); Mean Corpuscular HGB Conc 33.3 g/dl (32-36); Mean Corpuscular Hemoglobin 31.2 pg (26-34); Mean Corpuscular Volume 93.5 fl (80-100); Mean Platelet Volume 10.3 fl (7.4-10.4); Monocytes Absolute Auto 0.6 K/mm3 (0.1-0.6); Monocytes Percent Auto 8.2 % (2.6-8.5); Neutrophils Absolute Auto 4.7 K/mm3 (1.3-6.7); Neutrophils Percent Auto 68.2 % (45.5-73.1); Platelet Count Result 234 k/mm3 (150-375); Red Blood Count 3.37 M/mm3 (4.2-5.4); Red Cell Distribution Width 12.9 % (11.5-14.5); White Blood Count 6.9 K/mm3 (4.5-10.0)
[2020-05-03 05:17] LABS: Blood Urea Nitrogen 22 mg/dL (7-17); Calcium 8.8 mg/dL (8.4-10.2); Carbon Dioxide 28 mmol/L (22-30); Chloride 104 mmol/L (98-107); Estimated CRCL calculation 43 ml/min; Estimated Glomerular Filt Rate 55; Glucose 107 mg/dL (65-105); Potassium 3.9 mmol/L (3.4-5.0); Sodium 138 mmol/L (137-145)
[2020-05-03 06:00] VITALS: BP 129/59; PULSE 77; RESP 17; TEMP 36.7; O2SAT 98
[2020-05-03] MEDS: ESCITALOPRAM OXALATE 10 MG TABLET PO (07:59)
[2020-05-03] MEDS: buPROPion HCL XL (24 HR) 150 MG TABCR PO ×2 (07:59→20:29)
[2020-05-03] MEDS: THYROID 60 MG TABLET PO (07:59)
[2020-05-03] MEDS: PANTOPRAZOLE 40 MG TABLET PO (07:59)
[2020-05-03] MEDS: ENOXAPARIN 40 MG/0.4 ML SYRINGE SUB-Q (08:00)
[2020-05-03] MEDS: CARBIDOPA/LEVODOPA 12.5/50 MG TABLET 1 TABLET PO ×4 (09:38→20:29)
[2020-05-03] MEDS: CARBIDOPA/LEVODOPA 25/100 MG TABLET 2 TABLET PO ×4 (09:38→20:29)
[2020-05-03] MEDS: ACETAMINOPHEN 325 MG TABLET 650 MG PO (09:40)
--- NOTE | 2020-05-03 12:36 | PCDIET ---
Nutrition Follow-Up Complete: No nutrition diagnosis at this time. Nutrition Goal: Patient to consume 75% of meals or greater. Goal met. Patient consuming 80-100% of meals on regular diet which is appropriate. Patient reports good appetite and denies c/o or concerns. Last recorded weight is 70.9 kg. Recommend obtaining new weight. Bowel Motility: +BM today. Labs Reviewed: Hgb (10.5), Hct (31.5), Glu (110), BUN (22), Cr (1.1) Meds Noted: Sinemet, Protonix, Thyroid Additional Notes: Alysha to head laceration were removed 05/02/20. No other skin issues documented. Nutrition Monitoring and Evaluation: Follow up every 7 days.
[2020-05-03 14:00] VITALS: BP 125/51; PULSE 76; RESP 20; TEMP 37.5; O2SAT 96
--- NOTE | 2020-05-03 15:44 | WPDNEURORHBP ---
Subjective Date/time seen: 05/03/20 15:44 Interval history: this 70-year-old woman with underlying Parkinson's disease is here after suffering from type 2 odontoid fracture along with the other mentioned comorbidities in my H and P the patient is doing fairly well however is impulsive does have a memory dysfunction which was concurred by the family member available on the telephone she denies any headache nausea vomiting chest pain shortness of breath fever chills sore throat Review of Systems Review of Systems: All systems reviewed & are unremarkable except as noted in HPI and below Functional Status Ambulation Ability Ability to Ambulate 10 Feet: Standby Assistance Ability to Ambulate 50 Feet With 2 Turns: Contact Guard Ability to Ambulate 150 Feet: Contact Guard Ambulation Assistive Devices: Walker, Wheeled Transfers Ability Ability to Transfer In/Out of Chair: Contact Guard Exam Const: General: comfortable and no acute distress HENMT: General nose exam: Normal nares present Mouth: Yes moist mucous membranes Eyes: General: appearance normal, both eyes and all related structures Neck: Neck: supple and no JVD Other: wearing cervical collar Resp: Effort & Inspection: normal respiratory effort Auscultation: clear to auscultation bilaterally Cardio: Rate: regular rate Rhythm: regular rhythm GI: GI Palp: Yes Soft to palpation Auscultation: normal bowel sounds Skin: General skin exam: normal color and no rashes or lesions noted Neuro: Other: patient is noted to be impulsive memory dysfunction and of course underlying Parkinson's disease. The Parkinson's disease itself is stable however the patient's memory deficit needs to be addressed by the neurologist who has been following the patient as an outpatient for some time overall she has been improving improving and walking and I plan to discontinue her heparin or Lovenox whatever she is on Extrem: General: normal to inspection Psych: Mental Status: mental status grossly normal Other: with the exception the patient does have a short-term memory deficit and relatively at best fair judgment insight Objective Data Vital Signs Vital Signs: Vital Signs - 24 hr 05/02/20 22:00 05/03/20 06:00 05/03/20 14:00 Temperature 36.3 C L 36.7 C 37.5 C Pulse Rate 70 77 76 Respiratory Rate 18 17 20 Blood Pressure 122/47 L 129/59 L 125/51 L Pulse Oximetry 95 98 96 Intake/Output Intake/Output: Intake & Output 04/30/20 05/01/20 05/02/20 05/03/20 23:59 23:59 23:59 23:59 Intake Total 720 960 520 480 Balance 720 960 520 480 Meds/Results Medications: Active Medications Generic Name Dose Route Start Last Admin Trade Name Freq PRN Reason Stop Dose Admin Acetaminophen 650 mg 04/25/20 18:42 05/03/20 09:40 Tylenol Tablet PO 650 mg Q4H PRN Administration Pain (Scale Score 1-3) Bupropion HCl 150 mg 04/25/20 21:00 05/03/20 07:59 Wellbutrin Xl (24 Hr) PO 150 mg Q12HR ITZEL Administration Carbidopa/Levodopa 1 tablet 04/29/20 13:00 05/03/20 14:27 Sinemet 12.5/50 Mg PO 1 tablet 0900,1300,1900,2100 ITZEL Administration Carbidopa/Levodopa 2 tablet 04/29/20 13:00 05/03/20 14:27 Sinemet 25/100 Mg PO 2 tablet 0900,1300,1900,2100 ITZEL Administration Enoxaparin Sodium 40 mg 04/26/20 09:00 05/03/20 08:00 Lovenox SUB-Q 40 mg DAILY ITZEL Administration Escitalopram Oxalate 10 mg 04/26/20 09:00 05/03/20 07:59 Lexapro PO 10 mg DAILY ITZEL Administration Oxycodone HCl 5 mg 04/25/20 18:42 Roxicodone Ir Tablet PO Q6H PRN pain>6 Pantoprazole Sodium 40 mg 04/26/20 09:00 05/03/20 07:59 Protonix PO 40 mg QAM ITZEL Administration Thyroid 60 mg 04/26/20 09:00 05/03/20 07:59 [place] Thyroid PO 60 mg DAILY ITZEL Administration Labs Labs: Laboratory Results - last 24 hr 05/03/20 05/03/20 04:44 04:44 WBC 6.9 RBC 3.37 L Hgb 10.5 L Hct 31.5 L MCV 93.5 MCH 31.2 MCHC 33
[2020-05-03 22:00] VITALS: BP 133/58; PULSE 73; RESP 17; TEMP 36.3; O2SAT 95
[2020-05-04 06:00] VITALS: BP 131/58; PULSE 72; RESP 17; TEMP 36; O2SAT 97
[2020-05-04] MEDS: buPROPion HCL XL (24 HR) 150 MG TABCR PO ×2 (09:46→21:07)
[2020-05-04] MEDS: CARBIDOPA/LEVODOPA 12.5/50 MG TABLET 1 TABLET PO ×4 (09:47→21:07)
[2020-05-04] MEDS: CARBIDOPA/LEVODOPA 25/100 MG TABLET 2 TABLET PO ×4 (09:48→21:08)
[2020-05-04] MEDS: ENOXAPARIN 40 MG/0.4 ML SYRINGE SUB-Q (09:48)
[2020-05-04] MEDS: THYROID 60 MG TABLET PO (09:49)
[2020-05-04] MEDS: PANTOPRAZOLE 40 MG TABLET PO (09:49)
[2020-05-04] MEDS: ESCITALOPRAM OXALATE 10 MG TABLET PO (09:49)
--- NOTE | 2020-05-04 13:45 | WPDNEURORHBP ---
Subjective Date/time seen: 05/04/20 13:45 Interval history: this 70-year-old woman is here for the type to order to height fracture with multiple other fractures she does have memory loss which has been confirmed by the family physician she is planning to moved to [place] at the beginning of the next month closer to her daughter I had recommended in way weekly conference yesterday to the daughter that she would need a follow-up with Neurosurgery and also a neurologist to see and looking to the memory loss patient is impulsive and has little hard time accepting that she does have a memory loss but she was receptive today and listen to me carefully about her disabilities associated with Parkinson's disease meaning the memory loss The patient denies any headache nausea vomiting chest pain shortness of breath fever chills sore throat Review of Systems Review of Systems: All systems reviewed & are unremarkable except as noted in HPI and below Functional Status Ambulation Ability Ability to Ambulate 10 Feet: Standby Assistance Ability to Ambulate 50 Feet With 2 Turns: Standby Assistance Ability to Ambulate 150 Feet: Contact Guard Ambulation Assistive Devices: Walker, Wheeled Transfers Ability Ability to Transfer In/Out of Chair: Contact Guard Exam Const: General: comfortable and no acute distress HENMT: General nose exam: Normal nares present Mouth: Yes moist mucous membranes Eyes: General: appearance normal, both eyes and all related structures Neck: Neck: supple and no JVD Other: wearing the hard cervical [place] collar Resp: Effort & Inspection: normal respiratory effort Auscultation: clear to auscultation bilaterally Cardio: Rate: regular rate Rhythm: regular rhythm GI: GI Palp: Yes Soft to palpation Auscultation: normal bowel sounds Skin: General skin exam: normal color and no rashes or lesions noted Neuro: Other: patient is awake and alert well oriented however has memory dysfunction improving strength in both upper lower extremities and walking fairly decently Extrem: General: normal to inspection Psych: Mental Status: mental status grossly normal Other: short-term memory loss obvious Objective Data Vital Signs Vital Signs: Vital Signs - 24 hr 05/03/20 14:00 05/03/20 22:00 05/04/20 06:00 Temperature 37.5 C 36.3 C L 36.0 C L Pulse Rate 76 73 72 Respiratory Rate 20 17 17 Blood Pressure 125/51 L 133/58 L 131/58 L Pulse Oximetry 96 95 97 Intake/Output Intake/Output: Intake & Output 06/28/20 06/29/20 06/30/20 07/01/20 23:59 23:59 23:59 23:59 Intake Total 960 520 720 240 Balance 960 520 720 240 Meds/Results Medications: Active Medications Generic Name Dose Route Start Last Admin Trade Name Freq PRN Reason Stop Dose Admin Acetaminophen 650 mg 04/25/20 18:42 05/03/20 09:40 Tylenol Tablet PO 650 mg Q4H PRN Administration Pain (Scale Score 1-3) Bupropion HCl 150 mg 04/25/20 21:00 05/04/20 09:46 Wellbutrin Xl (24 Hr) PO 150 mg Q12HR ITZEL Administration Carbidopa/Levodopa 1 tablet 04/29/20 13:00 05/04/20 13:11 Sinemet 12.5/50 Mg PO 1 tablet 0900,1300,1900,2100 ITZEL Administration Carbidopa/Levodopa 2 tablet 04/29/20 13:00 05/04/20 13:11 Sinemet 25/100 Mg PO 2 tablet 0900,1300,1900,2100 ITZEL Administration Enoxaparin Sodium 40 mg 04/26/20 09:00 05/04/20 09:48 Lovenox SUB-Q 40 mg DAILY ITZEL Administration Escitalopram Oxalate 10 mg 04/26/20 09:00 05/04/20 09:49 Lexapro PO 10 mg DAILY ITZEL Administration Oxycodone HCl 5 mg 04/25/20 18:42 Roxicodone Ir Tablet PO Q6H PRN pain>6 Pantoprazole Sodium 40 mg 04/26/20 09:00 05/04/20 09:49 Protonix PO 40 mg QAM ITZEL Administration Thyroid 60 mg 04/26/20 09:00 05/04/20 09:49 [place] Thyroid PO 60 mg DAILY ITZEL Administration Progress Note: A&P Assessment and Plan (1) Memory loss: Code(s): R41.3 - Other amnesia Status: Acute
[2020-05-04 14:00] VITALS: BP 122/60; PULSE 78; RESP 20; TEMP 36.8; O2SAT 96
[2020-05-04 15:41] LABS: Thyroid Stimulating Hormone 0.445 uIU/mL (0.465-4.680)
[2020-05-04] MEDS: MEMANTINE 5 MG TABLET PO (21:07)
[2020-05-04 22:00] VITALS: BP 126/58; PULSE 77; RESP 17; TEMP 36.7; O2SAT 97
[2020-05-05 06:00] VITALS: BP 131/55; PULSE 66; RESP 18; TEMP 36.2; O2SAT 98
[2020-05-05] MEDS: CARBIDOPA/LEVODOPA 12.5/50 MG TABLET 1 TABLET PO ×4 (09:33→21:07)
[2020-05-05] MEDS: ENOXAPARIN 40 MG/0.4 ML SYRINGE SUB-Q (09:33)
[2020-05-05] MEDS: CARBIDOPA/LEVODOPA 25/100 MG TABLET 2 TABLET PO ×4 (09:33→21:07)
[2020-05-05] MEDS: ESCITALOPRAM OXALATE 10 MG TABLET PO (09:34)
[2020-05-05] MEDS: THYROID 60 MG TABLET PO (09:34)
[2020-05-05] MEDS: buPROPion HCL XL (24 HR) 150 MG TABCR PO ×2 (09:34→21:06)
[2020-05-05] MEDS: MEMANTINE 5 MG TABLET PO ×2 (09:35→21:07)
[2020-05-05] MEDS: PANTOPRAZOLE 40 MG TABLET PO (09:35)
--- NOTE | 2020-05-05 12:04 | WPDNEURORHBP ---
Subjective Date/time seen: 05/05/20 12:04 Interval history: this 70-year-old is here because of type 2 ordered quite fracture and also other fractures she has been walking quite well her memory deficit remains stable she denies any headache nausea vomiting chest pain shortness of breath her B12 level is relatively on the low side and I am going to put her on B12 supplement Review of Systems Review of Systems: All systems reviewed & are unremarkable except as noted in HPI and below Functional Status Ambulation Ability Ability to Ambulate 10 Feet: Standby Assistance Ability to Ambulate 50 Feet With 2 Turns: Standby Assistance Ability to Ambulate 150 Feet: Contact Guard Ambulation Assistive Devices: Walker, Wheeled Transfers Ability Ability to Transfer In/Out of Chair: Contact Guard Exam Const: General: comfortable and no acute distress HENMT: General nose exam: Normal nares present Eyes: General: appearance normal, both eyes and all related structures Neck: Neck: supple and no JVD Resp: Effort & Inspection: normal respiratory effort Auscultation: clear to auscultation bilaterally Cardio: Rate: regular rate Rhythm: regular rhythm GI: GI Palp: Yes Soft to palpation Auscultation: normal bowel sounds Skin: General skin exam: normal color and no rashes or lesions noted Neuro: Other: patient is awake and alert well oriented time place and person speech and language functions are normal cranial exam shows normal memory functions are clearly subnormal she is walking much better several 100 feet denies any new findings wearing a cervical collar quite well Extrem: General: normal to inspection Psych: Other: [id number] short-term memory deficit Objective Data Vital Signs Vital Signs: Vital Signs - 24 hr 05/04/20 14:00 05/04/20 22:00 05/05/20 06:00 Temperature 36.8 C 36.7 C 36.2 C L Pulse Rate 78 77 66 Respiratory Rate 20 17 18 Blood Pressure 122/60 126/58 L 131/55 L Pulse Oximetry 96 97 98 Intake/Output Intake/Output: Intake & Output 05/02/20 05/03/20 05/04/20 05/05/20 23:59 23:59 23:59 23:59 Intake Total 520 720 720 360 Balance 520 720 720 360 Meds/Results Medications: Active Medications Generic Name Dose Route Start Last Admin Trade Name Freq PRN Reason Stop Dose Admin Acetaminophen 650 mg 04/25/20 18:42 05/03/20 09:40 Tylenol Tablet PO 650 mg Q4H PRN Administration Pain (Scale Score 1-3) Bupropion HCl 150 mg 04/25/20 21:00 05/05/20 09:34 Wellbutrin Xl (24 Hr) PO 150 mg Q12HR ITZEL Administration Carbidopa/Levodopa 1 tablet 04/29/20 13:00 05/05/20 09:33 Sinemet 12.5/50 Mg PO 1 tablet 0900,1300,1900,2100 ITZEL Administration Carbidopa/Levodopa 2 tablet 04/29/20 13:00 05/05/20 09:33 Sinemet 25/100 Mg PO 2 tablet 0900,1300,1900,2100 ITZEL Administration Enoxaparin Sodium 40 mg 04/26/20 09:00 05/05/20 09:33 Lovenox SUB-Q 40 mg DAILY ITZEL Administration Escitalopram Oxalate 10 mg 04/26/20 09:00 05/05/20 09:34 Lexapro PO 10 mg DAILY ITZEL Administration Memantine 5 mg 05/04/20 21:00 05/05/20 09:35 Namenda PO 5 mg Q12HR ITZEL Administration Oxycodone HCl 5 mg 04/25/20 18:42 Roxicodone Ir Tablet PO Q6H PRN pain>6 Pantoprazole Sodium 40 mg 04/26/20 09:00 05/05/20 09:35 Protonix PO 40 mg QAM ITZEL Administration Thyroid 60 mg 04/26/20 09:00 05/05/20 09:34 [place] Thyroid PO 60 mg DAILY ITZEL Administration Labs Labs: Laboratory Results - last 24 hr 05/04/20 14:47 Vitamin B12 277.0 TSH 0.445 L Progress Note: A&P Assessment and Plan (1) Memory loss: Code(s): R41.3 - Other amnesia Status: Acute (2) Hypertension: Code(s): I10 - Essential (primary) hypertension Status: Acute (3) Ulcerative colitis: Code(s): K51.90 - Ulcerative colitis, unspecified, without complications Status: Acute (4) Parkinsons disease:
[2020-05-05 14:00] VITALS: BP 120/61; PULSE 82; RESP 17; TEMP 36.9; O2SAT 100
[2020-05-05 22:00] VITALS: BP 134/54; PULSE 70; RESP 16; TEMP 36.2; O2SAT 98
[2020-05-06 06:00] VITALS: BP 120/55; PULSE 79; RESP 18; TEMP 36.5; O2SAT 97
[2020-05-06] MEDS: CARBIDOPA/LEVODOPA 25/100 MG TABLET 2 TABLET PO ×2 (09:49→14:57)
[2020-05-06] MEDS: CARBIDOPA/LEVODOPA 12.5/50 MG TABLET 1 TABLET PO ×2 (09:49→14:57)
[2020-05-06] MEDS: buPROPion HCL XL (24 HR) 150 MG TABCR PO (09:49)
[2020-05-06] MEDS: THYROID 60 MG TABLET PO (09:50)
[2020-05-06] MEDS: MEMANTINE 5 MG TABLET PO (09:50)
[2020-05-06] MEDS: ESCITALOPRAM OXALATE 10 MG TABLET PO (09:50)
[2020-05-06] MEDS: PANTOPRAZOLE 40 MG TABLET PO (09:50)
[2020-05-06] MEDS: CYANOCOBALAMIN 1,000 MCG TABLET 1000 MCG BY MOUTH (09:50)
--- NOTE | 2020-05-06 10:14 | WPDNEURORHBP ---
Subjective Date/time seen: 05/06/20 10:14 Interval history: This 70-year-old woman who has underlying memory loss and cognitive dysfunction and also moderately severe Parkinson's disease which is stable has been here because of type 2 order in toys fracture and she has cervical collar on she has done well in the rehab and is going to be discharged to [facility] facility pending COVID testing which was required by the accepting facility she denies any headache nausea vomiting chest pain shortness of breath fever chills or sore throat Review of Systems Review of Systems: All systems reviewed & are unremarkable except as noted in HPI and below Functional Status Ambulation Ability Ability to Ambulate 10 Feet: Standby Assistance Ability to Ambulate 50 Feet With 2 Turns: Contact Guard Ability to Ambulate 150 Feet: Contact Guard Ambulation Assistive Devices: Walker, Wheeled Transfers Ability Ability to Transfer In/Out of Chair: Contact Guard Exam Const: General: comfortable and no acute distress HENMT: General nose exam: Normal nares present Mouth: Yes moist mucous membranes Eyes: General: appearance normal, both eyes and all related structures Neck: Neck: supple and no JVD Resp: Effort & Inspection: normal respiratory effort Auscultation: clear to auscultation bilaterally Cardio: Rate: regular rate Rhythm: regular rhythm GI: GI Palp: Yes Soft to palpation Auscultation: normal bowel sounds Skin: General skin exam: normal color and no rashes or lesions noted Neuro: Other: the patient's Parkinson's Disease is stable without any dyskinesias her memory loss is stable she has been walking fairly good and overall picture is of significant improvement from the time he got from the tertiary care facility Extrem: General: normal to inspection Psych: Mental Status: mental status grossly normal Other: of course she has underlying mild to moderate memory loss and I suspect it is the dementia settling in in the background of having had Parkinson's disease for some time Objective Data Vital Signs Vital Signs: Vital Signs - 24 hr 05/05/20 14:00 05/05/20 22:00 05/06/20 06:00 Temperature 36.9 C 36.2 C L 36.5 C Pulse Rate 82 70 79 Respiratory Rate 17 16 18 Blood Pressure 120/61 134/54 L 120/55 L Pulse Oximetry 100 98 97 Intake/Output Intake/Output: Intake & Output 05/03/20 05/04/20 05/05/20 05/06/20 23:59 23:59 23:59 23:59 Intake Total 720 720 720 240 Balance 720 720 720 240 Meds/Results Medications: Active Medications Generic Name Dose Route Start Last Admin Trade Name Freq PRN Reason Stop Dose Admin Acetaminophen 650 mg 04/25/20 18:42 05/03/20 09:40 Tylenol Tablet PO 650 mg Q4H PRN Administration Pain (Scale Score 1-3) Bupropion HCl 150 mg 04/25/20 21:00 05/06/20 09:49 Wellbutrin Xl (24 Hr) PO 150 mg Q12HR ITZEL Administration Carbidopa/Levodopa 1 tablet 04/29/20 13:00 05/06/20 09:49 Sinemet 12.5/50 Mg PO 1 tablet 0900,1300,1900,2100 ITZEL Administration Carbidopa/Levodopa 2 tablet 04/29/20 13:00 05/06/20 09:49 Sinemet 25/100 Mg PO 2 tablet 0900,1300,1900,2100 ITZEL Administration Cyanocobalamin 1,000 mcg 05/06/20 09:00 05/06/20 09:50 Vitamin B-12 Tab BY MOUTH 06/05/20 09:01 1,000 mcg DAILY ITZEL Administration Escitalopram Oxalate 10 mg 04/26/20 09:00 05/06/20 09:50 Lexapro PO 10 mg DAILY ITZEL Administration Memantine 5 mg 05/04/20 21:00 05/06/20 09:50 Namenda PO 5 mg Q12HR ITZEL Administration Oxycodone HCl 5 mg 04/25/20 18:42 Roxicodone Ir Tablet PO Q6H PRN pain>6 Pantoprazole Sodium 40 mg 04/26/20 09:00 05/06/20 09:50 Protonix PO 40 mg QAM ITZEL Administration Thyroid 60 mg 04/26/20 09:00 05/06/20 09:50 [place] Thyroid PO 60 mg DAILY ITZEL Administration Progress Note: A&P Assessment and Plan (1) B12 deficiency: Code(s): E53.8 - Deficiency of other specified B group v
[2020-05-06 13:33] LABS: SARS-CoV-2 RNA PCR Negative
--- NOTE | 2020-05-12 10:35 | PM.DS ---
DS: Admitting Diagnosis Admitting Diagnosis Admitting Diagnosis: Nondisplaced Type II dens fracture, initial encounter for closed fracture DS: Discharge Diagnosis Discharge Diagnosis (1) B12 deficiency: Code(s): E53.8 - Deficiency of other specified B group vitamins Status: Acute (2) Memory loss: Code(s): R41.3 - Other amnesia Status: Acute (3) Hypertension: Code(s): I10 - Essential (primary) hypertension Status: Acute (4) Ulcerative colitis: Code(s): K51.90 - Ulcerative colitis, unspecified, without complications Status: Acute (5) Parkinsons disease: Code(s): G20 - Parkinson's disease Status: Acute (6) T9 vertebral fracture: Code(s): S22.079A - Unspecified fracture of T9-T10 vertebra, initial encounter for closed fracture Status: Acute (7) Type II fracture of odontoid process: Code(s): S12.110A - Anterior displaced Type II dens fracture, initial encounter for closed fracture Status: Acute DS: Summary Hospital Course Reason for hospitalization: This 70-year-old was admitted because of the multiple problem the predominant 1 was the nondisplaced ordered wide fracture type 2 with the other fractures mentioned as above and the other comorbidities mentioned above the other 1 is the memory loss Hospital Course: patient received the physical therapy occupational therapy and gait training along with the protection of her spine with the hard cervical collar She was able to achieved the following independent measures eating independent, oral hygiene independent, toileting supervision, bathing supervision, upper body dressing partial assistance, lower body dressing supervision, footwear independent rolling in bed independent sitting to lying independent lying to sitting independent [id number] supervision chair transfers supervision toilet transfers supervision car transfers supervision rather substantial walking 10 feet supervision walking 50 feet with to turn supervision walking 150 feet supervision walking 10 feet uneven surfaces supervision carb are step supervision 4 steps supervision 12 step supervision became of objects supervision walking 50 feet with wheelchair not applicable wheelchair 150 feet not applicable the patient discharged to custodial facility primarily because of not only the fracture but the memory dysfunction which has been discussed with the daughter no falls were recorded Time Spent with Patient Time attestation: Total time spent providing and/or coordinating discharge services: Exam Const: General: comfortable and no acute distress HENMT: General nose exam: Normal nares present Mouth: Yes dry mucous membranes Eyes: General: appearance normal, both eyes and all related structures Neck: Other: neck is in cervical collar without much for discomfort Resp: Effort & Inspection: normal respiratory effort Auscultation: clear to auscultation bilaterally Cardio: Rate: regular rate Rhythm: regular rhythm GI: GI Palp: Yes Soft to palpation Auscultation: normal bowel sounds Skin: General skin exam: normal color and no rashes or lesions noted Neuro: Other: patient was awake and alert oriented however with the clear memory loss and cognitive dysfunction which has been coming on rather slowly and the previous 1 year so her Parkinson's disease is stable with the current medication and in fact has improved while she was here Extrem: General: normal to inspection Psych: Other: cognitive dysfunction improved Discharge Plan Discharge Attending physician on discharge: Marcel New Consulting providers: JorgeIgnacio Discharging Clinician: Marcel New Patient Disposition: Home Health Service Activity: may shower and no driving Diet: as tolerated Patient Instructions: Antibiotic Form, Pain Management in Older Adults (DC) Stand Alone Forms: General Discharge Information Follow-up/Referrals: PCP [Othe
== END 2020-05-06 16:20 | DRG 560 ==
PROVIDERS: Admitting Provider Psychiatry & Neurology Neurology; Family Provider Psychiatry & Neurology Neurology; PCP Family Medicine; Visit Provider Psychiatry & Neurology Neurology
DX: S12.112D Nondisplaced Type II dens fracture, subsequent encounter for fracture with routine healing (principal); K51.90 Ulcerative colitis, unspecified, without complications; Z11.59 Encounter for screening for other viral diseases; S22.079D Unspecified fracture of T9-T10 vertebra, subsequent encounter for fracture with routine healing; S01.91XD Laceration without foreign body of unspecified part of head, subsequent encounter; G20 Parkinson's disease; E03.9 Hypothyroidism, unspecified; E53.8 Deficiency of other specified B group vitamins; F32.9 Major depressive disorder, single episode, unspecified; I10 Essential (primary) hypertension; K21.9 Gastro-esophageal reflux disease without esophagitis; R41.3 Other amnesia; R41.841 Cognitive communication deficit; Z87.891 Personal history of nicotine dependence; W19.XXXD Unspecified fall, subsequent encounter
CPT/HCPCS: 36415; 80048; 82607; 84443; 85025; 87635; 92507; 97110; 97116; 97162; 97166; 97530; 97535; A9270; C9803; J1650; L0140; U0003